=== PATIENT | female | born 1960 | race Hispanic/Latino ===

== ENCOUNTER 2018-02-26 22:30 | Emergency (ER) | payer OTHER ==
[2018-02-26 22:55] VITALS: O2SAT 98
--- NOTE | 2018-02-26 23:05 | ED PDOC ---
Upper Extremity Pain/Injury Time Seen by Provider: 02/26/18 23:02 Chief Complaint (Nursing): Upper Extremity Problem/Injury Chief Complaint (Provider): FOPROSPER Left hand History Per: Patient History/Exam Limitations: no limitations Onset/Duration Of Symptoms: Hrs (two), Sudden Onset Current Symptoms Are (Timing): Still Present Quality: Dull Severity: Mild Past Medical History Reviewed: Historical Data, Nursing Documentation, Vital Signs Vital Signs: Last Vital Signs Temp 98.3 F 02/26/18 22:54 Pulse 79 02/26/18 22:54 Resp 14 02/26/18 22:54 BP 157/89 H 02/26/18 22:54 Pulse Ox 98 02/26/18 22:54 - Family History Family History: States: Unknown Family Hx - Home Medications Home Medications: Ambulatory Orders Medication Instructions Recorded oxyCODONE/Acetaminophen [Percocet 1 ea PO QID #16 tab 02/26/18 5/325 mg Tab] - Allergies Allergies/Adverse Reactions: Allergies Allergy/AdvReac Type Severity Reaction Status Date / Time No Known Allergies Allergy Verified 02/26/18 22:51 Review of Systems ROS Statement: Except As Marked, All Systems Reviewed And Found Negative Musculoskeletal: Positive for: Hand Pain Physical Exam - Reviewed Nursing Documentation Reviewed: Yes Vital Signs Reviewed: Yes - Physical Exam Appears: Positive for: Well, Non-toxic, No Acute Distress Head Exam: Positive for: ATRAUMATIC, NORMAL INSPECTION Skin: Positive for: Normal Color, Warm Neck: Positive for: Normal, Painless ROM, Supple. Negative for: Decreased ROM Cardiovascular/Chest: Positive for: Regular Rate, Rhythm. Negative for: Bradycardia, Tachycardia Respiratory: Positive for: Normal Breath Sounds. Negative for: Crackles, Rales , Rhonchi, Stridor, Wheezing, Respiratory Distress Pulses-Carotid (L): 2+ Pulses-Carotid (R): 2+ Pulses-Radial (L): 2+ Pulses-Radial (R): 2+ Extremity: Positive for: Tenderness, Capillary Refill (less than two seconds in all distal extremities). Negative for: Normal ROM (reduced active and passive ROM on left hand; full ROM at elbow and wrist ) DTR - Bicep (R): 2+ DTR - Bicep (L): 2+ DTR - Knee (L): 2+ DTR - Ankle (R): 2+ - ECG O2 Sat by Pulse Oximetry: 98 Medical Decision Making Medical Decision Making: three digit fx with mild dislocation of 2-3-4- digits of left hand at the mcp manual reduction performed with good visual results after injecting 1% lidocaine at the nerve block of each digit pt tolerated reduction well Disposition - Clinical Impression Clinical Impression: Hand fracture, left - Patient ED Disposition Is Patient to be Admitted: No Doctor Will See Patient In The: Office Counseled Patient/Family Regarding: Diagnosis, Need For Followup, Rx Given - Disposition Referrals: Mariya Murry MD [Staff Provider] - Disposition: Routine/Home Disposition Time: 00:07 Condition: STABLE Prescriptions: oxyCODONE/Acetaminophen [Percocet 5/325 mg Tab] 1 ea PO QID #16 tab Instructions: Hand Fracture, Hand Fracture (DC) Forms: [email or web address] ([place]ian)
[2018-02-26] MEDS ORDERED: Lidocaine 1% Inj (20ml) ONE (23:25)
[2018-02-27 00:08] VITALS: BP 130/78; PULSE 76; RESP 18; TEMP 98
--- NOTE | 2018-02-27 08:31 | RAD ---
PROCEDURE: Left Hand Radiographs. HISTORY: r/o fx COMPARISON: None. FINDINGS: BONES: Fractures proximal 2nd, 3rd and 4th metacarpals. Ananda remarked JOINTS: Osteoarthritic changes categorized as moderate. SOFT TISSUES: Normal. OTHER FINDINGS: None. IMPRESSION: Acute fractures second 3rd and 4th proximal metacarpals. These do not appear to have an intra-articular component. Concordant results with the preliminary interpretation rendered by the emergency department physician procedure.
--- NOTE | 2018-02-27 08:33 | RAD ---
PROCEDURE: Left Hand Radiographs. HISTORY: POST REDUXX COMPARISON: None. FINDINGS: BONES: Status post reduction of known 2nd 3rd and 4th proximal metacarpal fractures. Improved anatomic alignment identified. JOINTS: Normal. No osteoarthritic changes. SOFT TISSUES: Normal. OTHER FINDINGS: None. IMPRESSION: Improved anatomic alignment 2nd 3rd and 4th proximal phalangeal fractures Concordant results with the preliminary interpretation rendered by the emergency department physician procedure.
== END 2018-02-27 00:22 | disposition home or self-care (01) ==
LOC: H.ER 22:30
DX: S62.91XA Unspecified fracture of right hand, initial encounter for closed fracture (principal); W19.XXXA Unspecified fall, initial encounter; Y92.89 Other specified places as the place of occurrence of the external cause